=== PATIENT | male | born 1970 | race Caucasian/White ===

== ENCOUNTER 2024-06-03 00:26 | Emergency (ER) | payer OTHER ==
[2024-06-03] MEDS: Sodium Chloride 0.9% 1,000 ML IV ONE (00:30)
[2024-06-03] MEDS: Tranexamic Acid 1,000 MG in Sodium Chloride 0.9% 100 ML IV ONE ×3 (01:12→02:15)
[2024-06-03] MEDS: Tranexamic Acid 1,000 MG/10 ML Vial ONE (01:16)
[2024-06-03] MEDS: Iopamidol 755 MG/ML 500 ML Multipack Bottle IVPUSH ONE (01:54)
[2024-06-03 02:06] LABS: INR 1.07 (0.86-1.11); PTT,PARTIAL THROMBOPLSTIN TIME 22.8 SEC (23.9-30.7)
[2024-06-03] MEDS: Calcium Gluconate 10% 1 GM/10 ML SDV IVPUSH ONE (02:15)
[2024-06-03 02:26] LABS: HEMATOCRIT 40.5 % (42.0-52.0); HEMOGLOBIN 13.4 g/dL (14.0-18.0); IMMATURE GRAN ABSOLUTE AUTO 0.21 K/uL (0.00-0.05); MEAN CORPUSCULAR HEMOGLOBIN 30.8 pg (28.0-32.0); MEAN CORPUSCULAR HGB CONC 33.1 g/dL (32.0-36.0); MEAN CORPUSCULAR VOLUME 93.1 fL (83.0-99.0); MEAN PLATELET VOLUME 10.7 fL (9.4-12.4); PLATELET COUNT,PLT 245 K/uL (150-400); RED BLOOD CELL COUNT 4.35 M/uL (4.52-5.90); WHITE BLOOD CELL COUNT,WBC 21.04 K/uL (3.9-11.3)
[2024-06-03 02:39] LABS: A/G RATIO 1.1 (0.9-1.6); ALANINE AMINOTRANSFERASE,ALT 28 IU/L (14-63); ALBUMIN 3.1 g/dL (3.4-5.0); ALKALINE PHOSPHATASE 48 U/L (46-116); ASPARTATE AMNIOTRANSFERASE,AST 44 IU/L (15-37); BILIRUBIN TOTAL 0.5 mg/dL (0.2-1.0); BLOOD UREA NITROGEN,BUN 19 mg/dL (7.0-18.0); CALCIUM 8.1 mg/dL (8.5-10.1); CARBON DIOXIDE,CO2 25.5 mmol/L (21.0-32.0); CHLORIDE,CL 104 mmol/L (98-107); CREATINE KINASE,CK 631 U/L (26-308); CREATININE 1.7 mg/dL (0.8-1.3); GLUCOSE RANDOM 253 mg/dL (74-106); POTASSIUM,K 4.2 mmol/L (3.5-5.1); SODIUM,NA 139 mmol/L (136-148)
[2024-06-03 02:41] LABS: ESTIMATED GFR 48 mL/min (>60)
[2024-06-03] MEDS: Calcium Gluconate 10% 1 GM/10 ML SDV ONE (04:08)
== END 2024-06-03 02:15 ==
LOC: MW.ED 00:26
DX: S32.502A Unspecified fracture of left pubis, initial encounter for closed fracture (principal); S32.10XA Unspecified fracture of sacrum, initial encounter for closed fracture; T79.4XXA Traumatic shock, initial encounter; I99.8 Other disorder of circulatory system; R31.9 Hematuria, unspecified; V94.89XA Other water transport accident, initial encounter
CPT/HCPCS: 36415; 36430; 51702; 70450; 71275; 75635; 80053; 82550; 85027; 85610; 85730; 86850; 86900; 86901; 86920; 96361; 96374; 96375; 99285; J0612; J3490; J7030; P9016; P9017; Q9967; 99291